=== PATIENT | female | born 1975 | race Caucasian/White ===

== ENCOUNTER 2020-12-23 03:14 | Emergency (ER) | payer BC, SELFPAY ==
[2020-12-23 03:15] VITALS: BP 157/110; PULSE 122; RESP 18; TEMP 36; O2SAT 99; BMI 40.4
--- NOTE | 2020-12-23 03:23 | ED.DCSUM_ITS ---
History of Present Illness Chief Complaint: Dental Informant: Patient Onset: Yesterday Current Severity: Moderate Maximum Severity: Moderate Narrative: Patient presents secondary to dental pain and facial swelling. She states she had a tooth that broke a couple weeks ago. Yesterday it was bothering her but she woke from sleep early this morning with left-sided facial swelling. She denies throat pain or difficulty swallowing. She states she does have a dentist that she can follow-up with this week. - Past Medical History (1) Hypertension Status: Chronic (2) Diabetes Status: Chronic (3) Anxiety Status: Chronic (4) Fibromyalgia Status: Chronic Past Medical History - Allergies and Home Meds Allergies/Adverse Reactions: Allergies No Known Allergies Allergy (Verified 12/23/20 03:16) Primary Care Physician: Shahriar Soler DO [Primary Care Provider] - Prior records reviewed: Yes Smoking Status: Never smoker Review of Systems General: Denies: Chills, Fever Eyes: Denies: Visual changes - bilaterally ENT: Reports: - - Left facial pain and swelling. Denies: Bilateral ear pain Cardiovascular: Denies: Chest pain Respiratory: Denies: Dyspnea, Cough Gastrointestinal: Denies: Abdominal pain, Nausea, Vomiting, Diarrhea Genitourinary: Denies: Dysuria Musculoskeletal: Denies: Swelling, Extremity Pain Skin: Denies: Rash Endocrine: Denies: Polyuria, Polydipsia Hematologic: Denies: Easy bruising Physical Exam Vital Signs/Narrative: Vital Signs Temp Pulse Resp BP Pulse Ox 12/23/20 03:15 96.8 F L 122 H 18 157/110 H 99 Inital Vital Signs reviewed: Yes General: Well nourished, Well developed Head: Normocephalic Eyes: Perrl, EOMI ENT: TM's clear, - - Mild left facial edema. No erythema. Left maxillary lateral incisor is broken. Mild surrounding gum edema. Posterior pharynx exam normal. Cardiovascular: Regular rate, Regular rhythm, No murmurs Respiratory: No distress, CTA bilaterally Abdomen: Soft, Nontender Skin: Normal color Neurological: Alert, Oriented x3 Psychological: Normal affect Diagnostic/Tx/Re-eval - Medical Decision Making Patient be treated with a course of Pen-Vee K, first dose given here. Patient instructed to follow-up with her dentist this coming week. ED Disposition - Plan for ED Patient: Disposition: Home or Assisted Living Diagnosis: Dental infection Instructions: ED Dental Abscess Prescriptions: Penicillin V Potassium 500 mg PO 4X/DAY #40 tablet Transmission Status: Pending to [facility]/pharmacy #[id number] Additional Instructions: Follow-up with your dentist as soon as possible.
[2020-12-23] MEDS: Penicillin Vk 250 MG Tablet 500 MG PO (03:35)
== END 2020-12-23 03:37 | disposition home or self-care (01) ==
LOC: ED 03:33
PROVIDERS: Emergency Provider Emergency Medicine; PCP Preventive Medicine Occupational Medicine
DX: K04.7 Periapical abscess without sinus (principal)
CPT/HCPCS: 99283

== ENCOUNTER 2023-10-17 07:15 | Emergency (ER) | payer BC, SELFPAY ==
[2023-10-17 07:16] VITALS: BP 138/100; PULSE 109; RESP 16; TEMP 35.9; O2SAT 97; BMI 33.8
--- NOTE | 2023-10-17 07:51 | EDS_ITS ---
HPI History of Present Illness Chief Complaint: Back Detail of Chief Complaint: Right hand tingling for months. Informant: patient Onset/Context/Timing Onset: Month(s) Current Severity: Mild Maximum Severity: Mild Associated Symptoms Associated Symptoms: Positive for Parasthesias and Weakness; Negative for Loss of function, Inability to ambulate, Loss of consciousness or Amnesia Narrative Narrative: 48-year-old female history of fibromyalgia, chronic pain, diabetes, hypertension, hypothyroidism. Has never had neck or back surgery. States she has had tingling primarily in her index long and ring fingers for the last several months. Decreased strength in her right hand. Denies any fall or trauma. No injury. Denies any significant neck pain. Prior similar symptoms: Yes Recent Illness/Hospitalization: No PFSH PFSH Home Medications penicillin V potassium 500 mg tablet 500 mg PO 4X/DAY #40 tabs 12/23/20 [Rx Last Taken Unknown] Allergy/AdvReac Type Severity Reaction Status Date / Time No Known Allergies Allergy Verified 12/23/20 03:16 Social History Smoking Status: Never smoker ROS ROS ED ROS Narrative Denies recent illness. Review of Systems ROS Unobtainable: Denies due to encephalopathy Constitutional Constitutional ED: Denies lethargy Eyes Eyes: Denies blurry vision ENT ENT ED: Denies epistaxis Cardiovascular Cardiovascular: Denies clubbing Respiratory/Chest Respiratory/Chest: Denies nail bed cyanosis Gastrointestinal Gastrointestinal: Denies dry heaves Genitourinary Genitourinary ED: Denies hematuria Musculoskeletal Musculoskeletal: Denies difficulty walking Integumentary Denies jaundice Neurologic Neurologic: Denies frequent falls Psychiatric Psychiatric: Denies mood swings Endocrine Endocrinology: Denies deepening of the voice Hematologic/Lymphatic Hematologic/Lymphatic: Denies lymphadenopathy Allergic/Immunologic Allergic/Immunologic ED: Denies mouth swelling EXAM Physical Exam Narrative Exam Narrative: Well-appearing 48-year-old female. Vital signs are stable afebrile. HEENT exam unremarkable. Pupils round reactive light. Neck nontender. Full range of motion. Full flexion extension. Back nontender. Lungs clear equal symmetrical. Heart regular rhythm. Abdomen soft nontender. Moving all 4 extremities. 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 No muscular atrophy in either hand. Able to open and close each hand. Normal cap refill bilaterally. Subjectively decreased sensation in the middle 3 digits of the right hand including the index long and ring finger. Positive Tinel and Phalen sign on the right. Negative on the left. Lower extremities are nontender without edema. Neurologically she is awake and alert with no focal motor or sensory deficit except in the right hand. Const Vital Signs: 10/17/23 07:16 Temperature 96.7 F L Temperature Source Temporal Pulse Rate 109 H Respiratory Rate 16 Blood Pressure 138/100 H Blood Pressure Mean 112 Pulse Ox 97 Oxygen Delivery Method Room Air Positive well nourished, well developed, alert, oriented x3, no apparent distress, no limitations and healthy appearing; Negative for cachectic, contractures or unkempt General Appearance ED: well developed; Negative for unkempt, cachectic or contractures Nutritional Appearance: Negative for cachectic HEENT Reports normocephalic and head/scalp atraumatic normocephalic Face and Sinus: normal facial exam Nose: external nose normal External Ear: external ears normal Mouth ED: Yes oral and palatal mucosa normal Mouth: oral and palatal mucosa normal Teeth and Gingiva: Negative for abnormal tooth and associated gingiva Throat: posterior oropharynx normal Eyes PERRL, EOMs intact bilaterally, conjunctivae normal, no scleral icterus and no papilledema General Eye ED: Yes normal appearance of both eyes Alignment: alignment normal Eyelid: eyelids normal Conjunctiva: conjunctiva normal Sclera: sclera normal Pupil: PERRL Neck full ROM, No nuchal rigidity, no lymphadenopathy, supple, no meningeal signs, no JVD and no carotid bruits Lymph Lymphatic: no lymphadenopathy noted and no lymphedema noted; Negative for lymphedema or lymphadenopathy Resp normal respiratory effort, normal air movement, no retractions, no use of accessory muscles and clear to auscultation bilaterally Effort and Inspection: able to speak in complete sentences Auscultation: clear to auscultation bilaterally Cardio regular rate, regular rhythm, S1 normal heart sound, S2 normal heart sound, no murmurs, no rub, no gallops, no clicks and no JVD Rate: regular rate Rhythm: regular rhythm GI normal to inspection, nondistended, normoactive bowel sounds, soft to palpation, non-tender, non-distended, no masses and no bruits Palpation: soft; Negative for tender or guarding Back/Spine no CVA tenderness, normal ROM, normal to inspection, thoracic and lumbar spine normal to inspection, no thoracic nor lumbar tenderness, thoraco-lumbar ROM normal and straight leg raise negative bilaterally General Back: Negative for CVA tenderness Cervical Spine: cervical ROM normal Thoracic Spine / Upper Back: normal to inspection Lumbar Spine / Lower Back: normal to inspection Extremity full ROM, normal capillary refill, no joint enlargement, no clubbing, cyanosis or edema, no calf tenderness and no pedal edema Extremity Narrative: 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 She is right-hand dominant. Subjective paresthesia in the right index, long and ring fingers. Positive Tinel and Phalen's on the right. Neuro oriented x3, CN's II-XII intact bilaterally, moves all extremities, No no focal motor deficits and No no sensory deficits noted Sensorium / Orientation: awake, alert, oriented to person, oriented to place and oriented to time; Negative for orientation impaired, confused or lethargic Meningeal Signs: no meningeal signs Speech: speech normal Motor Exam: Negative for strength 5/5 throughout Psych mental status grossly normal, thought process normal, cooperative, affect normal, speech normal and activity/motor behavior normal Appearance: grossly normal; Negative for unkempt Attitude: calm and engaged Speech: normal speech Thought Process: normal thought process Skin no rashes or lesions noted, no wounds, skin turgor normal, no jaundice, no petechiae and no mottling General Skin Exam: no breakdown Lesions: no lesions Rashes: no rashes Trauma: no lacerations or abrasions Hair: normal MDM MDM MDM Narrative Medical decision making narrative: 48-year-old female with possible carpal tunnel syndrome right hand. Referred back to her primary care physician for orthopedic hand referral. Ice and elevate. Cock up wrist splint. Motrin for pain and inflammation. Discharge Plan Triage Chief Complaint: Back Other Complaint: Numb/Ting ED Provider: Julio Cesar Rust Dx/Rx/DC Orders Clinical Impression: Acute carpal tunnel syndrome, History of diabetes mellitus Instructions: ED Carpal Tunnel Syndrome Prescriptions: No Action penicillin V potassium 500 MG tablet 500 mg PO 4X/DAY Qty: 40 0RF Primary Care Provider: Shahriar Soler Referrals: Shahriar Soler DO [Primary Care Provider] - As soon as possible Activity Restrictions/Additional Instructions: Ice and elevate your wrist. Cock up wrist splint Motrin 600 mg 2-3 times a day to decrease the inflammation in your wrist. This very well may be carpal tunnel syndrome. Have your primary care physician refer you to an orthopedic hand specialist. For further evaluation. Disposition Disposition: Home, Self Care
--- OUTSIDE RECORDS SUMMARY | 2023-10-17 07:51 | XMS RPT_ITS | CCD ---
Author Name Unknown Address [address] [place] [address] Organization [facility] Care Team Providers Care Medical Information Officer Name Role Phone CRISTINA HERNDON DO Primary Care Physician [phone] CRISTINA HERNDON Attending Unavailable CRISTINA HENRDON Primary Care Unavailable CRISTINA HERNDON Attending Unavailable CRISTINA HERNDON Primary Care Unavailable Allergies Allergy Classification Reported Allergen(s) Allergy Type Date of Onset Reaction(s) Facility (2 sources) gabapentin; Translations: [gabapentin] Drug Allergy Nausea [facility] (2 sources) Lisinopril; Translations: [lisinopril] Drug Allergy Cough [facility] Medications Current Medications Medication Drug Class(es) Dates Sig (Normalized) Sig (Original) cyclobenzaprine hydrochloride 5 mg oral tablet (2 sources) Muscle Relaxant Start: 01-21-2022 take 1-2 tablets by mouth three times daily as needed cyclobenzaprine 5 mg oral tablet See Instructions, TAKE 1 TO 2 TABLETS BY MOUTH 3 TIMES A DAY NEEDED, # 100 tab(s), 5 Refill(s), Pharmacy: [id number], 157.5, cm, 01/21/22 16:27:00 EDT, Height, kg, 01/21/22 16:27:00 EDT, Dosing Weight Start Date: 01/21/22 Status: Ordered dapagliflozin 10 mg oral tablet (1 source) Sodium-Glucose Cotransporter 2 Inhibitor Start: 02-09-2023 Farxiga 10 mg oral tablet Dose : 10 mg = 1 tab(s), Oral, qDay, # 30 tab(s), 11 Refill(s), Pharmacy: [facility], Type 2 diabetes mellitus, 162, cm, 11/17/22 8:31:00 EST, Height, kg, 11/17/22 8:31:00 EST, Dosing Weight Start Date: 02/09/23 Status: Ordered DULoxetine 60 mg delayed release oral capsule (2 sources) Serotonin and Norepinephrine Reuptake Inhibitor Start: 12-08-2022 take 1 capsule by mouth twice daily DULoxetine 60 mg oral delayed release capsule See Instructions, TAKE ONE CAPSULE BY MOUTH TWICE A DAY, # 180 cap(s), 3 Refill(s), Pharmacy: [facility], 162, cm, 11/17/22 8:31:00 EST, Height, kg, 11/17/22 8:31:00 EST, Dosing Weight Start Date: 12/08/22 Status: Ordered Completed/Discontinued Medications Medication Drug Class(es) Dates Sig (Normalized) Sig (Original) LORazepam 0.5 mg oral tablet (2 sources) Benzodiazepine Start: 02-13-2021 End: 03-15-2021 LORazepam 0.5 mg oral tablet Dose : 0.5 mg = 1 tab(s), Oral, TID, PRN anxiety, # 90 tab(s), 0 Refill(s), Pharmacy: [facility]/pharmacy #[id number], Anxiety, 159, cm, 02/13/21 11:25:00 EDT, Height, 97.5, kg, 02/13/21 11:25:00 EDT, Dosing Weight Start Date: 02/13/21 Stop Date: 03/15/21 Status: Ordered Problems Problem Classification Problem Date Documented Da te Episodic/Chronic Anxiety disorders (2 sources) Anxiety; Translations: [Anxiety disorder] 04-11-2015 Chronic Cardiac dysrhythmias (2 sources) Tachycardia 07-22-2019 Episodic Diabetes mellitus without complication (2 sources) Type 2 diabetes mellitus 01-27-2020 Chronic Essential hypertension (2 sources) Hypertensive disorder 01-27-2020 Chronic Other connective tissue disease (2 sources) Fibromyalgia 04-07-2019 Episodic Other connective tissue disease (2 sources) Spasm 04-08-2019 Episodic Other liver diseases (2 sources) Steatosis of liver 11-07-2020 Chronic Other nutritional; endocrine; and metabolic disorders (1 source) Severe obesity 03-13-2021 Chronic Other nutritional; endocrine; and metabolic disorders (1 source) Obese class I 02-12-2023 Chronic Other skin disorders (2 sources) Hyperhidrosis 01-19-2020 Episodic Residual codes; unclassified (2 sources) Persistent insomnia 01-27-2020 Chronic Spondylosis; intervertebral disc disorders; other back problems (2 sources) Low back pain 02-13-2021 Episodic Thyroid disorders (2 sources) Hypothyroidism 04-11-2015 Chronic Results Test Name Value Interpretation Reference Range Facil ity Encounters Encounter Date Encounter Type Care Provider Facility Start: 06-02-2023 End: 06-02-2023 Patient encounter procedure CRISTINA HERNDON DO [facility] Start: 09-03-2022 End: 09-04-2022 ambulatory CRISTINA HERNDON Facility:[facility] Start: 01-22-2022 End: 01-23-2022 ambulatory CRISTINA HERNDON Facility:[facility] Start: 01-22-2022 End: 01-22-2022 Patient encounter procedure CRISTINA HERNDON DO [facility] Procedures Date Procedure Procedure Detail Performing Clinician Start: 09-16-2011 Hysterectomy CRISTINA DUNN DO Payers Date Payer Category Payer Unknown [id number] 1975 Unknown [id number] 1975 Unknown [id number] Social History Date Type Detail Facility Start: 04-07-2019 Tobacco smoking status Never s moked tobacco (finding) [facility] Sex Assigned At Sex [facility] Progress note 04-12-2021 Note Date & Type Note Facility 04-12-2021 Note HNO ID: [id number] Author: Ben Locke APRN.[employer] Service: ? Author Type: Nurse Practitioner Type: Progress Notes Filed: 04/12/2021 5:49 PM Note Text: Visit Date: April 12, 2021 Patient Name: Ms.Tinia Ginny Neumann Date of : 1975 MRN/E #: [id number] Chief Complaint Patient presents with: Ear Pain: right ear pain x 2 days History of present illness Gissel Neumann is a 46 year old female. Presents with complaints of right ear pain that started 2 days ago. Denies having hearing loss, drainage from the ears, fever, chills, congestion, or tinnitus. Currently does not wear hearing aids. She has not taken anything for her symptoms since onset. PAIN EVALUATION 04/12/2021 1630 Pain Level: 6 Pain Location: Ear-Right Description: Aching;Sharp Duration Amount of Time: 2 Duration Units: Days Frequency: Continuous Intervention/Comfort measure: Medication ALLERGIES Allergen Reactions - Gabapentin Vomiting - Lisinopril Cough - Raspberries [Other] Hives PAST MEDICAL HISTORY Diagnosis Date - Hypertension - Hypothyroid - Nerve damage right lower leg PAST SURGICAL HISTORY Procedure Laterality Date - HYSTERECTOMY HX - TUBAL LIGATION, Social History Tobacco Use - Smoking status: Never Smoker - Smokeless tobacco: Never Used Substance Use Topics - Alcohol use: No - Drug use: Not on file No family history on file. Review of Systems Constitutional: Negative for chills, fever and malaise/fatigue. HENT: Positive for ear pain (right ear). Negative for congestion and sore throat. Respiratory: Negative for cough, shortness of breath and wheezing. Cardiovascular: Negative for chest pain and palpitations. Gastrointestinal: Negative for abdominal pain, diarrhea, nausea and vomiting. Musculoskeletal: Negative for myalgias. Skin: Negative for itching and rash. Neurological: Negative for dizziness, tingling and headaches. Physical Exam Vitals and nursing note reviewed. Constitutional: Appearance: Normal appearance. HENT: Right Ear: Hearing, tympanic membrane, ear canal and external ear normal. No decreased hearing noted. Tenderness present. No drainage or swelling. No mastoid tenderness. Tympanic membrane is not erythematous or bulging. Left Ear: Hearing, tympanic membrane, ear canal and external ear normal. No decreased hearing noted. No drainage, swelling or tenderness. No mastoid tenderness. Tympanic membrane is not erythematous or bulging. Neurological: Mental Status: She is alert. BP 160/102 Pulse 104 Temp 97.9 Resp 18 Wt 212 lb 9.6 oz (96.4kg) SpO2 97% LMP 07/21/2011 Assessment/Plan (H92.01) Otalgia of right ear (primary encounter diagnosis) -education material provided -f/u if no better in 3-5 days -discussed proper ear hygiene -discussed prevention Ben Locke APRN.CNP Discussed above plan with patient. Pt agreeable with above plan. [facility] Evaluation + Plan note Laboratory Note Date & Type Note Facility Evaluation + Plan note Future Appointments Appointment Date:04/29/2022 09:00:00 AM Scheduled Provider:CRISTINA HERNDON DO Location:[facility] Appointment Type:PC OV Future Scheduled TestsThyroid Stimulating Hormone 02/04/21Free T4 02/04/21A1C Hemoglobin 02/04/21Lipid Profile 02/04/21Microalbumin Level Urine 02/04/21Complete Metabolic Panel 02/04/21 [facility] Evaluation + Plan note Laboratory Note Date & Type Note Facility Evaluation + Plan note Future Appointments Appointment Date:06/15/2023 04:00:00 PM Scheduled Provider:CRISTINA HERNDON DO Location:[facility] Appointment Type:PC OV Appointment Date:08/24/2023 04:00:00 PM Scheduled Provider:CRISTINA HERNDON DO Location:[facility] Appointment Type:PC OV Follow Up Future Scheduled TestsAlbumin/Creatinine Ratio, Random Urine 05/26/23 [facility] Hospital course Narrative Note Date & Type Note Facility Hospital course Narrative No data available for this section [facility] Hospital Discharge instructions Note Date & Type Note Facility Hospital Discharge instructions No data available for this section [facility] Progress note Note Date & Type Note Facility Progress note No data available for this section [facility] Summary Purpose Family History No Family History Records FoundNo Family History Records Found No data available for this section Advance Directives No Advanced Directives Records FoundNo Advanced Directives Records Found Additional Source Comments INFORMATION SOURCE (unrecogn ized section and content) DATE CREATED AUTHOR AUTHOR'S CHEPE ATION 09/12/2022 [facility] ([place] Care Team (unrecognized sect ion and content) Personnel Name: CRISTINA HERNDON DO Address: [address] [place] [id number] [place] [address] Care Team Personnel Name: CRISTINA HERNDON DO Position: P4 Physician - Primary Care Member Role: Primary Care Physician Address: Address: [address] [place] [address] Care Team Related Persons Name: DAISHA NEUMANN Address: Home [address] [id number] Name: DAISHA NEUMANN Address: Home [address] [place], [place] [id number] FOR RECORDS PERTAINING TO PATIENTS WHO ARE OR HAVE BEEN ENROLLED IN A CHEMICAL DEPENDENCY/SUBSTANCEABUSE PROGRAM, SOME INFORMATION MAY BE OMITTED. This clinical summary was aggregated from multiple sources. Caution should be exercised in using it in the provision of clinical care. This summary normalizes information from multiple sources, and as a consequence, information in this document may materially change the coding, format and clinical context of patient data. In addition, data may be omitted in some cases. CLINICAL DECISIONS SHOULD BE BASED ON THE PRIMARY CLINICAL RECORDS. [facility]. provides no warranty or guarantee of the accuracy or completeness of information in this document.
== END 2023-10-17 08:23 | disposition home or self-care (01) ==
PROVIDERS: Emergency Provider Emergency Medicine; PCP Preventive Medicine Occupational Medicine; Visit Provider Emergency Medicine
DX: G56.01 Carpal tunnel syndrome, right upper limb (principal); E11.9 Type 2 diabetes mellitus without complications
CPT/HCPCS: 99283

== ENCOUNTER 2024-01-02 10:08 | Emergency (ER) | payer BC, SELFPAY ==
[2024-01-02 10:09] VITALS: BP 148/95; PULSE 82; RESP 14; TEMP 36.3; O2SAT 100; BMI 33.6
--- NOTE | 2024-01-02 11:05 | EX.ED.DYSGE1 ---
HPI History of Present Illness Chief Complaint: Dental Narrative Narrative: Patient is a 48-year-old female who is presenting to the ER today with chief complaint of right upper dental pain. Patient is having her right upper tooth, She will have number 6 pulled on Thursday. Patient states that she tastes a foul taste in her mouth. Patient has minimal swelling to the right cheek. Patient Is asking for an antibiotic, does not want any pain medication. Patient is not using type of ice or heat. [facility] Medical History (Updated 01/02/24 @ 11:[address] Norman Berger DO) Pain, dental Home Medications penicillin V potassium 500 mg tablet 500 mg PO 4X/DAY #40 tabs 12/23/20 [Rx Last Taken Unknown] clindamycin HCl 300 mg capsule (Cleocin HCl) 300 mg PO Q8 #15 CAPSULES 01/02/24 [Rx Last Taken Unknown] Allergy/AdvReac Type Severity Reaction Status Date / Time No Known Allergies Allergy Verified 01/02/24 10:08 Social History Smoking Status: Unknown if ever smoked ROS ROS ED ROS Narrative REVIEW OF SYSTEMS: Unless otherwise stated in this report the patient's positive and negative responses for review of systems for constitutional, eyes, ENT, cardiovascular, respiratory, gastrointestinal, neurological, , musculoskeletal, and integument systems and related systems to the presenting problem are either stated in the history of present illness or were not pertinent or were negative for the symptoms and/or complaints related to the presenting medical problem. EXAM Physical Exam Narrative Exam Narrative: Nurses notes reviewed and patient is noted to be non-hypoxic. General: The patient is comfortable, alert and oriented x3, well appearing, non toxic in no apparent distress. Head: Atraumatic and normocephalic. Eyes: Normal conjunctiva ENT: The oropharynx is normal. No pharyngeal erythema, uvular edema, tonsillar exudates, asymmetry or trismus. Uvula is midline. Mouth is normal to inspection With the exception of a pain on percussion of the tooth #6 and evidence of dental caries. There is no evidence of Significant facial asymmetry or abscess formation. Patient has minimal swelling to the right cheek. Floor of the mouth is soft. No tenderness in the submental or submandibular space. No tongue elevation or deviation. The patient has no evidence of periapical abscess, gingivitis, ANUG or other acute pathology. Airway is patent. Neck: The neck demonstrates normal range of motion. No meningeals signs are present. No stridor. No masses or lymphandenopathy noted. Respiratory: No acute distress, lungs are clear to auscultation, no wheezing, rhonchi, or rales noted. No stridor or retractions are noted. Cardiovascular: Regular rate and rhythm Skin: The skin exam shows no evidence of rashes Neuro: Alert and oriented x4, normal speech Lymphatic: No cervical lymphadenopathy Const Vital Signs: 01/02/24 10:09 01/02/24 11:18 Temperature 97.3 F L 98.3 F Temperature Source Temporal Pulse Rate 82 75 Respiratory Rate 14 16 Blood Pressure 148/95 H 130/91 H Blood Pressure Mean 112 104 Pulse Ox 100 100 Oxygen Delivery Method Room Air MDM MDM MDM Narrative Medical decision making narrative: Patient states that she has a foul taste in her mouth yesterday and said. Patient has minimal swelling to the right cheek. Patient will have tooth #6 pulled on Thursday by her dentist. Patient will be placed on prophylactic antibiotics to error on the side of caution. Patient understands and agrees to this. No question of discharge. Patient will continue using ice, alternate Tylenol and anti-inflammatories every 4 hours. Patient agrees to this plan. Discharge Plan Triage Chief Complaint: Dental ED Provider: Norman Berger Dx/Rx/DC Orders Clinical Impression: Pain due to dental caries, Atypical face pain, Toothache Instructions: Medicine for Pain, ED Dental Pain, ED Pain, Acute, Uncertain Cause Prescriptions: New clindamycin HCl [Cleocin HCl] 300 mg capsule 300 mg PO Q8 Qty: 15 0RF No Action penicillin V potassium 500 MG tablet 500 mg PO 4X/DAY Qty: 40 0RF Primary Care Provider: Shahriar Soler Referrals: Shahriar Soler DO [Primary Care Provider] - Activity Restrictions/Additional Instructions: Alternate Tylenol and anti-inflammatories every 4 hours for pain. Alternate Tylenol and either Motrin, Advil, ibuprofen every 4 hours, also continue ice. Do not use heat. Use ice 20 minutes on, 20 minutes off. Antibiotic has been prescribed prophylactically. Follow-up with your dentist on Thursday to have tooth extraction As scheduled. Disposition Disposition: Home, Self Care Discharge Date/Time: 01/02/24 11:20
--- NOTE | 2024-01-02 11:07 | ED.RN ---
pt states MD was in for assessment. will inquire about orders.
[2024-01-02 11:18] VITALS: BP 130/91; PULSE 75; RESP 16; TEMP 36.8; O2SAT 100
== END 2024-01-02 11:20 | disposition home or self-care (01) ==
PROVIDERS: Emergency Provider Emergency Medicine; PCP Preventive Medicine Occupational Medicine; Visit Provider Emergency Medicine
DX: K08.89 Other specified disorders of teeth and supporting structures (principal); K02.9 Dental caries, unspecified; R51.9 Headache, unspecified
CPT/HCPCS: 99282

== ENCOUNTER 2024-09-01 09:21 | Emergency (ER) | payer OTHER, SELFPAY ==
[2024-09-01 09:21] VITALS: BP 149/101; PULSE 101; RESP 16; TEMP 36.8; O2SAT 100; BMI 33.9
--- NOTE | 2024-09-01 09:35 | EDS_ITS ---
HPI History of Present Illness Chief Complaint: Upper Extremity Injury [facility] Medical History (Updated 09/01/24 @ 10:[address] Abran Castro DO) Pain, dental Home Medications ?Medication ?Instructions ?Recorded ?Last Taken ?Type penicillin V potassium 500 mg 500 mg PO 4X/DAY #40 tabs 12/23/20 Unknown Rx tablet clindamycin HCl 300 mg capsule 300 mg PO Q8 #15 CAPSULES 01/02/24 Unknown Rx (Cleocin HCl) Allergy/AdvReac Type Severity Reaction Status Date / Time No Known Allergies Allergy Verified 01/02/24 10:08 Social History Smoking Status: Unknown if ever smoked EXAM Physical Exam Const Vital Signs: 09/01/24 09:21 Temperature 98.3 F Temperature Source Oral Pulse Rate 101 H Respiratory Rate 16 Blood Pressure 149/101 H Blood Pressure Mean 117 Pulse Ox 100 Oxygen Delivery Method Room Air MDM MDM MDM Narrative Medical decision making narrative: HISTORY OF PRESENT ILLNESS: 49-year-old female presents with right upper arm pain. Notes she was lifting a box at work. She felt a pop in her right arm and bicep area. Patient denies active cancer, being bedridden for greater than 3 days, denies unilateral leg swelling, denies any varicose veins, denies any calf tenderness, denies tenderness along deep venous system. Denies major surgery within 12 weeks, recent paralysis, previous DVT. REVIEW OF SYSTEMS: Pertinent positives: Right arm pain Pertinent negatives: Numbness, weakness, loss sensation, shoulder pain elbow pain or wrist pain PHYSICAL EXAM: Nursing triage notes reviewed, Vital signs reviewed Constitutional: please see mdm HENT: MMM Extremities: No edema Neuro: Intact 5/5 strength with ok sign (median), intact finger abduction (ulnar) intact wrist extension (radial n). Intact sensation in the radial, ulnar, and median nerve distributions. Intact active neurofunction Skin: No rash or lesions noted MEDICAL DECISION MAKING: Chief Complaint: Arm pain External records reviewed: No recent advanced imaging of the involved extremity Factors affecting care: Type 2 diabetes, from allergy, anxiety and hypertension MDM Narrative: Patient was initially hemodynamically stable, afebrile and nontoxic-appearing. Exam with TTP over proximal biceps tendon. I considered the following differential diagnosis: Shoulder/elbow/wrist fracture, dislocation, septic arthritis, DVT, muscle strain The patient's history and physical exam were not consistent with upper extremity fracture dislocation as there is no significant trauma or TTP over these joints. She good joint range of motion. She had no fever or bogginess to suggest septic arthritis. Her DVT risk was low. This is likely a biceps muscle strain. Will give NSAIDs and strict precautions. Gave work note and return to work instructions. [facility] paperwork filled out. The patient and/or family, caregivers express understanding. The patient and/or family, caregivers agrees with the plan. Shared decision making: I will have a discussion with the patient and or visitors regarding risk/benefits of further testing or admission. They will be made aware of of the risk/benefits inherent in this decision they will be given the opportunity to voice understanding. Total critical care time today provided was at least 0 minutes. This excludes separately billable procedures. Critical care time (if documented) is secondary to the patient having high probability of clinically significant/life threatening deterioration in the patient's condition which required my urgent intervention. Impression: 1. Acute Right Biceps Strain Dispo: discharge This note was generated with [employer] dictation software. It may contain incorrect words, spelling, and punctuation that were not noted in review of the chart prior to signing. Discharge Plan Triage Chief Complaint: Upper Extremity Injury ED Provider: Abran Castro Dx/Rx/DC Orders Clinical Impression: Biceps strain Instructions: Biceps Tendonitis Prescriptions: No Action penicillin V potassium 500 MG tablet 500 mg PO 4X/DAY Qty: 40 0RF clindamycin HCl [Cleocin HCl] 300 mg capsule 300 mg PO Q8 Qty: 15 0RF Stand Alone Forms: ED Work / School Excuse Primary Care Provider: Shahriar Soler Referrals: Shahriar Soler DO [Primary Care Provider] - Activity Restrictions/Additional Instructions: Thank you for trusting us with your care today! You are suffering from a Biceps Tendon strain. Please rest for the next 24 hours. Please try not to bear weight in your upper extremity until pain is improved and your range of motion has returned. Please take Tylenol (2 pills, 650 mg), ibuprofen (2 pills, 400 mg) every 6 hours as needed for pain and fever control. Please perform progressive range of motion exercises including bicep curls and bicep stretches to improve blood flow and to improve range of motion. Please return to the emergency department if your symptoms change or worsen. Please follow with your primary care physician for further outpatient evaluation and management. Print Language: Mongolian Disposition Disposition: Home, Self Care Discharge Date/Time: 09/01/24 10:54
== END 2024-09-01 10:54 | disposition home or self-care (01) ==
PROVIDERS: Emergency Provider Emergency Medicine; PCP Preventive Medicine Occupational Medicine; Visit Provider Emergency Medicine
DX: S46.211A Strain of muscle, fascia and tendon of other parts of biceps, right arm, initial encounter (principal); E11.9 Type 2 diabetes mellitus without complications; X50.0XXA Overexertion from strenuous movement or load, initial encounter; Y99.0 Civilian activity done for income or pay; F41.9 Anxiety disorder, unspecified; I10 Essential (primary) hypertension
CPT/HCPCS: 99282